=== PATIENT | female | born 1940 | race Caucasian/White ===

== ENCOUNTER 2018-11-23 20:19 | Inpatient (IN) | payer OTHER ==
[~2018-11-23] VITALS: Ht 160 cm; Wt 143.4 kg
[2018-11-23] MEDS ORDERED: LORazepam 2MG/ML-1ML VIAL IV ONE ×2 (21:45)
[2018-11-23 21:53] LABS: Basophils # (auto) 0.1 uL; Basophils % (auto) 0.9 % (0.0-2.0); Eosinophils # (auto) 0 uL; Hematocrit 44.7 % (36.0-46.0); Lymphocytes # (auto) 1.7 uL; Lymphocytes % (auto) 21.7 % (10.0-50.0); Mean Corpuscular Hemoglobin 29.2 pg (28.0-32.0); Mean Corpuscular Hgb Conc. 33.6 g/dL (32.0-36.0); Mean Corpuscular Volume 86.9 fL (80.0-100.0); Monocytes % (auto) 12.4 % (0.0-12.0); Nucleated Red Blood Cells % 0.2 %; Platelet Count (auto) 162 10^3/uL (140-450); Red Blood Cells 5.14 10^6/uL (4.0-5.20); Red Cell Distribution Width 14.1 % (11.8-14.3); White Blood Cell 7.7 10^3/uL (4.4-10.8)
[2018-11-23] MEDS ORDERED: IPRATROPIUM BROM 0.5 MG/2.5ML INH SOL NEB ONE (22:00)
[2018-11-23] MEDS ORDERED: ALBUTEROL SULF 2.5 MG/0.5ML(0.5%) NEB SOLN NEB ONE (22:00)
[2018-11-23 22:09] LABS: Alanine Aminotransferase 51 U/L (13-56); Amylase 37 U/L (25-115); Anion Gap 11 (5-15); Aspartate Aminotransferase 33 U/L (15-37); BUN/Creatinine Ratio 17.4; Blood Urea Nitrogen 21 mg/dL (7-18); Calcium 8.9 mg/dL (8.5-10.1); Carbon Dioxide 32 mmol/L (21-32); Chloride 97 mmol/L (98-107); GFR African American 55 mL/min; GFR Non-African American 46 mL/min; Glucose 139 mg/dL (74-106); Lipase 103 U/L (73-393); Magnesium 2.6 mg/dL (1.6-2.6); Sodium 140 mmol/L (136-145)
[2018-11-23 22:15] LABS: Alkaline Phosphatase 82 U/L (45-117); Bilirubin, Total 0.9 mg/dL (0.2-1.0); Total Protein 7.4 g/dL (6.4-8.2)
[2018-11-23 22:23] LABS: Potassium 2.5 mmol/L (3.5-5.1)
[2018-11-23] MEDS ORDERED: POTASSIUM CHL 20MEQ/100ML 100 ML IV ONE (23:30)
[2018-11-23] MEDS ORDERED: methylPREDNISolone SOD SUCC 125 MG/2 ML VL IV ONE (23:30)
[2018-11-24] MEDS ORDERED: ONDANSETRON HCL 4 MG/2 ML VIAL IV ONE ×2 (00:30→06:00)
[2018-11-24] MEDS ORDERED: FUROSEMIDE 20 MG/2 ML VIAL IV ONE (00:30)
[2018-11-24] MEDS ORDERED: POTASSIUM CHL 20 Meq TABLET PO ONE (01:15)
[2018-11-24 02:57] LABS: Urine Bacteria FEW /hpf (None Seen); Urine Blood Negative /uL (Negative); Urine Hyaline Cast MOD /lpf (0 - 2); Urine Mucus FEW (None Seen); Urine WBC 6 /hpf (0 - 5)
[2018-11-24] MEDS ORDERED: FUROSEMIDE 40 MG/4 ML VIAL IV ONE (04:30)
[2018-11-24] MEDS ORDERED: MORPHINE SULFATE 4 MG/ML SYR/VIAL IV ONE (06:00)
[2018-11-24 06:07] LABS: Alanine Aminotransferase 48 U/L (13-56); Albumin 3.7 g/dL (3.4-5.0); Aspartate Aminotransferase 31 U/L (15-37); Blood Urea Nitrogen 23 mg/dL (7-18); Calcium 8.5 mg/dL (8.5-10.1); Carbon Dioxide 32 mmol/L (21-32); Glucose 181 mg/dL (74-106)
[2018-11-24 06:38] LABS: Anion Gap 9 (5-15); Chloride 100 mmol/L (98-107); Sodium 141 mmol/L (136-145)
[2018-11-24 06:53] LABS: Alkaline Phosphatase 85 U/L (45-117); BUN/Creatinine Ratio 18.3; Bilirubin, Total 0.9 mg/dL (0.2-1.0); GFR African American 53 mL/min; GFR Non-African American 44 mL/min; Total Protein 7.6 g/dL (6.4-8.2)
[2018-11-24] MEDS ORDERED: MORPHINE SULF INJ 2 MG/ML SYRINGE 1ML IV PRN (08:15)
[2018-11-24] MEDS ORDERED: NITROGLYCERIN 0.4 MG SL TAB SL PRN (08:15)
[2018-11-24] MEDS ORDERED: ACETAMINOPHEN 325 MG TAB PO PRN (08:15)
[2018-11-24] MEDS ORDERED: POTASSIUM EFFERVESENT TAB 25 MEQ ONE (08:25)
[2018-11-24] MEDS ORDERED: POTASSIUM EFFERVESENT TAB 25 MEQ PO ONE (08:30)
[2018-11-24] MEDS: NIFEdipine 10 MG CAP PO SCH ×2 (08:32→22:13)
[2018-11-24] MEDS: HYDROcodone-ACET 5/325MG TAB PO PRN ×4 (08:59→23:17)
[2018-11-24] MEDS ORDERED: FUROSEMIDE 40 MG/4 ML VIAL IV SCH (10:00)
[2018-11-24] MEDS: POTASSIUM CHL 20 Meq TABLET PO SCH ×2 (10:00→22:11)
[2018-11-24] MEDS: hydrALAZINE HCL 20 MG/ML VL IV PRN ×2 (10:29→15:51)
[2018-11-24] MEDS: ONDANSETRON HCL 4 MG/2 ML VIAL IV PRN ×2 (13:08→21:08)
[2018-11-24] MEDS ORDERED: ALPRAZolam 0.5 MG TAB PO PRN (13:30)
[2018-11-24 15:44] VITALS: BP 170/69
--- NOTE | 2018-11-24 16:12 | NUR ---
Telemetry admit from ER MALLYMISBAH admitted to Telemetry unit after SBAR received. Patient oriented to RICH ADHIKARI RN primary RN, unit, room, bed, and unit policies regarding patient care and visiting hours. Patient now on continuous telemetry monitoring Patient placed on bedside oxygen, weighed by bedscale and encouraged to call if they need something. All questions and concerns addressed, patient verbalized understanding. Note:
[2018-11-24 16:43] VITALS: BP 147/102
[2018-11-24 16:55] VITALS: BP 147/102
--- NOTE | 2018-11-24 17:21 | NUR ---
PT HAS HOSPICE FOLDER AT BEDSIDE WITH DAVID STATING SHE IS DNR
[2018-11-24] MEDS: LORazepam 2MG/ML-1ML VIAL IV PRN (18:32)
--- NOTE | 2018-11-24 18:55 | NUR ---
MD Luevano called new orders noted for pt having anxiety attack rocking in bed
[2018-11-24 22:00] VITALS: BP 131/75
[2018-11-24] MEDS: IPRATROPIUM BROM 0.5 MG/2.5ML INH SOL NEB PRN (23:00)
[2018-11-24] MEDS: ALBUTEROL SULF 2.5 MG/0.5ML(0.5%) NEB SOLN NEB PRN (23:00)
[2018-11-25] MEDS: LORazepam 2MG/ML-1ML VIAL IV PRN ×4 (00:27→20:10)
--- NOTE | 2018-11-25 00:35 | NUR ---
REPORT GIVEN BY JOSHUA CALLEJAS, PT. RESTING WITH EYES CLOSED, NO ANXIETY AT THIS TIME, TO CONTINUE PT. CARE.
--- NOTE | 2018-11-25 00:49 | NUR ---
ENDORSED PATIENT CARE TO NURSE EMILY LEWIS
[2018-11-25] MEDS: ONDANSETRON HCL 4 MG/2 ML VIAL IV PRN ×4 (03:43→22:37)
[2018-11-25 04:33] VITALS: BP 166/107
[2018-11-25] MEDS: HYDROcodone-ACET 5/325MG TAB PO PRN ×2 (04:58→22:37)
[2018-11-25 07:08] LABS: Basophils # (auto) 0.1 uL; Basophils % (auto) 0.9 % (0.0-2.0); Eosinophils # (auto) 0 uL; Hematocrit 43.3 % (36.0-46.0); Hemoglobin 14.3 g/dL (12.2-16.2); Lymphocytes # (auto) 2.3 uL; Lymphocytes % (auto) 22.4 % (10.0-50.0); Mean Corpuscular Hemoglobin 28.9 pg (28.0-32.0); Mean Corpuscular Hgb Conc. 32.9 g/dL (32.0-36.0); Mean Corpuscular Volume 87.9 fL (80.0-100.0); Monocytes # (auto) 1.1 uL; Monocytes % (auto) 10.6 % (0.0-12.0); Neutrophils # (auto) 6.8 uL; Neutrophils % (auto) 66.1 % (37.0-80.0); Nucleated Red Blood Cells % 0.1 %; Platelet Count (auto) 153 10^3/uL (140-450); Red Blood Cells 4.93 10^6/uL (4.0-5.20); Red Cell Distribution Width 14.6 % (11.8-14.3); White Blood Cell 10.3 10^3/uL (4.4-10.8)
--- NOTE | 2018-11-25 07:30 | NUR ---
Opening Shift Note Assumed care of patient, awake and alert. No S/S of distress/SOB or pain. Instructed on POC and to call for assist PRN, will continue to monitor for changes Q1hr and PRN.
[2018-11-25 07:39] LABS: Albumin 3.6 g/dL (3.4-5.0); BUN/Creatinine Ratio 20.9; Calcium 8.6 mg/dL (8.5-10.1)
[2018-11-25 07:45] LABS: Bilirubin, Total 0.7 mg/dL (0.2-1.0); Total Protein 6.7 g/dL (6.4-8.2)
[2018-11-25 07:47] LABS: Potassium 2.7 mmol/L (3.5-5.1)
--- NOTE | 2018-11-25 07:56 | NUR ---
Received call from Lab - serum potassium 2.7. Page placed to Dr. Luevano.
--- NOTE | 2018-11-25 08:22 | NUR ---
Return call from Dr. Luevano. He was informed of potassium level. New orders received.
[2018-11-25] MEDS ORDERED: POTASSIUM CHL 20 Meq TABLET PO ONE (08:30)
[2018-11-25] MEDS ORDERED: POTASSIUM CHLORIDE 40 MEQ, LIDOCAINE 1% (LOCAL ANESTH.) 4 ML in SODIUM CHL 0.9% 100 ML IV ONE (08:30)
[2018-11-25 09:00] VITALS: BP 143/77
[2018-11-25] MEDS: NIFEdipine 10 MG CAP PO SCH ×2 (10:43→22:36)
[2018-11-25] MEDS: POTASSIUM CHL 20 Meq TABLET PO SCH ×2 (10:44→22:36)
[2018-11-25] MEDS: methylPREDNISolone SOD SUCC 40 MG/ML VL IV SCH ×3 (11:47→22:36)
--- NOTE | 2018-11-25 11:57 | NUR ---
Estimated needs based on AJBW 78 kg-weight maintenance, geriatric needs, hx COPD 7396-0198 kcal (25-27 kcal/kg) 78-93 g protein (1.0-1.2 g/kg) Addendum: 11/25/18 at [address] Amended: Links added.
[2018-11-25 13:00] VITALS: BP 130/62
--- NOTE | 2018-11-25 13:20 | NUR ---
Patient agitated, thrashing around on the bed. Patient requesting something to relax her. Ativan IV given. is at bedside. Will continue to monitor.
--- NOTE | 2018-11-25 13:45 | NUR ---
PATIENT'S FAMILY REQUESTED THAT P.T. BE DONE ANOTHER TIME.
[2018-11-25 17:10] VITALS: BP 144/76
--- NOTE | 2018-11-25 17:24 | NUR ---
Patient anxious, states "I can't breath". O2 in place. O2 sat 94%. Patient calmer. at bedside. Will continue to monitor.
[2018-11-25] MEDS: IPRATROPIUM BROM 0.5 MG/2.5ML INH SOL NEB PRN (17:38)
[2018-11-25] MEDS: ALBUTEROL SULF 2.5 MG/0.5ML(0.5%) NEB SOLN NEB PRN (17:39)
--- NOTE | 2018-11-25 19:30 | NUR ---
Opening Shift Note Assumed care of patient, alert and oriented x 4. Patient on bedrest, hernandez catheter patent and draining to gravity. On 3L oxygen via nasal cannula. Family at bedside. Patient appears anxious and C/O nausea. Bed in lowest locked position, side rails up x 2, call light within reach. Instructed on POC and to call for assist PRN, will continue to monitor for changes Q1hr and PRN.
--- NOTE | 2018-11-25 20:15 | NUR ---
Patient had small amount of diarrhea on bedpan, cleaned patient, applied Z-guard and changed bed linens. Will continue to monitor.
[2018-11-25 21:39] VITALS: BP 141/75
[2018-11-26] MEDS: LORazepam 2MG/ML-1ML VIAL IV PRN ×2 (02:22→10:48)
[2018-11-26] MEDS: ONDANSETRON HCL 4 MG/2 ML VIAL IV PRN ×2 (03:44→10:49)
[2018-11-26 04:56] VITALS: BP 141/77
[2018-11-26] MEDS: methylPREDNISolone SOD SUCC 40 MG/ML VL IV SCH ×3 (05:50→21:41)
[2018-11-26 06:26] LABS: Basophils # (auto) 0 uL; Basophils % (auto) 0.2 % (0.0-2.0); Eosinophils # (auto) 0 uL; Hematocrit 43.1 % (36.0-46.0); Hemoglobin 14.3 g/dL (12.2-16.2); Lymphocytes # (auto) 1.1 uL; Lymphocytes % (auto) 10.5 % (10.0-50.0); Mean Corpuscular Hemoglobin 29.4 pg (28.0-32.0); Mean Corpuscular Hgb Conc. 33.3 g/dL (32.0-36.0); Mean Corpuscular Volume 88.2 fL (80.0-100.0); Monocytes # (auto) 0.4 uL; Monocytes % (auto) 3.7 % (0.0-12.0); Neutrophils # (auto) 9.2 uL; Neutrophils % (auto) 85.6 % (37.0-80.0); Platelet Count (auto) 158 10^3/uL (140-450); Red Blood Cells 4.89 10^6/uL (4.0-5.20); Red Cell Distribution Width 14.4 % (11.8-14.3); White Blood Cell 10.8 10^3/uL (4.4-10.8)
[2018-11-26 06:39] LABS: Calcium 8.5 mg/dL (8.5-10.1); Magnesium 2.5 mg/dL (1.6-2.6); Potassium 3.2 mmol/L (3.5-5.1)
[2018-11-26 06:41] LABS: BUN/Creatinine Ratio 21.2
[2018-11-26 09:08] VITALS: BP 155/76
[2018-11-26] MEDS: NIFEdipine 10 MG CAP PO SCH ×2 (10:00→21:42)
[2018-11-26] MEDS: POTASSIUM CHL 20 Meq TABLET PO SCH ×2 (10:49→21:42)
[2018-11-26] MEDS: HYDROcodone-ACET 5/325MG TAB PO PRN ×2 (10:51→22:17)
[2018-11-26] MEDS ORDERED: POTASSIUM CHL 20 Meq TABLET PO ONE (12:15)
[2018-11-26 13:22] VITALS: BP 131/58
[2018-11-26] MEDS: PANTOPRAZOLE 40 MG TAB PO SCH ×2 (14:30→21:43)
[2018-11-26 17:17] VITALS: BP 142/73
--- NOTE | 2018-11-26 18:10 | NUR ---
assessment Patient is a 78 year old female who is alert and oriented. Prior to admission patient lived home with family and functioned with assistance of Hospice. Per patients daughter Aalna who has POA patient will return home with [facility] hospice [phone] who she has been on for some time. Patient has all DME and patient will be transported home by [facility] transportation. MD order to dc with hospice has been sent to [facility]. Xenia from [facility] will contact family. Patients kee Warner is not aware of discharge. I informed Alana to speak to MD and bedside RN. Alana verbalized understand. Addendum: 11/26/18 at 1818 by Tamie BROWN Amended: Links added.
--- NOTE | 2018-11-26 19:15 | NUR ---
ASSUMED CARE, PT. AWAKE, RELATIVE AT BEDSIDE, REPOSITIONED PT. NO C/O PAIN, NO SOB.
[2018-11-26] MEDS: HYOSCYAMINE SULF 0.125 MG ODT TAB PO PRN (19:49)
--- NOTE | 2018-11-26 20:55 | NUR ---
PT. C/O PAIN AND DISCOMFORT ON HER FLORES CATHETER, PT.AND DAUGHTER REQUESTED TO REMOVED HER CATHETER, RISK AND BENEFITS EXPLAINED, STILL WANTS TO REMOVE CATHETER, FC REMOVED WITH 300ML URINE OUTPUT, TO KEEP MONITOR.
[2018-11-26 22:00] VITALS: BP 114/65
--- NOTE | 2018-11-26 22:24 | NUR ---
PT. URINATED WITH MODERATE AMT. OF YELLOW URINE OUTPUT.
--- NOTE | 2018-11-26 22:45 | NUR ---
Respiratory note: ASSESSED PT FOR PRN MED NEB AT THIS TIME, PT DENIES SOB AT THIS TIME, NO RESP DISTRESS NOTED, NO TX INDICATED. PULSE OX 97% ON 2LNC, HR 82, RR 18, BILATERAL BS RHONCHI
[2018-11-27] MEDS: ONDANSETRON HCL 4 MG/2 ML VIAL IV PRN ×2 (01:01→08:24)
[2018-11-27] MEDS: LORazepam 2MG/ML-1ML VIAL IV PRN ×2 (01:19→10:30)
[2018-11-27 04:44] VITALS: BP 154/65
[2018-11-27] MEDS: methylPREDNISolone SOD SUCC 40 MG/ML VL IV SCH ×2 (05:55→15:12)
[2018-11-27] MEDS: HYDROcodone-ACET 5/325MG TAB PO PRN ×3 (06:02→17:07)
[2018-11-27 06:53] LABS: Basophils # (auto) 0 uL; Basophils % (auto) 0.1 % (0.0-2.0); Eosinophils # (auto) 0 uL; Hematocrit 40.3 % (36.0-46.0); Hemoglobin 13.4 g/dL (12.2-16.2); Lymphocytes # (auto) 1.2 uL; Lymphocytes % (auto) 11.4 % (10.0-50.0); Mean Corpuscular Hemoglobin 29.1 pg (28.0-32.0); Mean Corpuscular Hgb Conc. 33.3 g/dL (32.0-36.0); Mean Corpuscular Volume 87.5 fL (80.0-100.0); Monocytes # (auto) 0.5 uL; Monocytes % (auto) 4.4 % (0.0-12.0); Neutrophils % (auto) 84.1 % (37.0-80.0); Platelet Count (auto) 144 10^3/uL (140-450); Red Cell Distribution Width 14.2 % (11.8-14.3); White Blood Cell 10.7 10^3/uL (4.4-10.8)
[2018-11-27 07:02] LABS: Calcium 8.4 mg/dL (8.5-10.1); Magnesium 2.6 mg/dL (1.6-2.6); Potassium 3.5 mmol/L (3.5-5.1)
[2018-11-27 07:09] LABS: BUN/Creatinine Ratio 22.4
--- NOTE | 2018-11-27 07:50 | NUR ---
Opening Shift Note Assumed care of patient, alert and oriented x 4. Patient on bedrest, On 3L oxygen via nasal cannula, bed at lowest locked position, call light within reach. On 2L oxygen via nasal cannula2 Patient appears anxious and C/O nausea and pain. Will medicate per MD orders. Instructed on POC and to call for assist PRN, will continue to monitor for changes Q1hr and PRN.
[2018-11-27 08:00] VITALS: BP 123/63
[2018-11-27] MEDS: PANTOPRAZOLE 40 MG TAB PO SCH (08:24)
[2018-11-27] MEDS: POTASSIUM CHL 20 Meq TABLET PO SCH (08:24)
[2018-11-27] MEDS: ALBUTEROL SULF 2.5 MG/0.5ML(0.5%) NEB SOLN NEB PRN (08:34)
[2018-11-27] MEDS: IPRATROPIUM BROM 0.5 MG/2.5ML INH SOL NEB PRN (08:34)
--- NOTE | 2018-11-27 08:41 | NUR ---
PATIENT WILL BE ADMITTED TO HOSPICE UPON DISCHARGE. HOLD AGGRESSIVE P.T.
[2018-11-27] MEDS ORDERED: VANCOMYCIN HCL 125MG/5ML ORAL SOL PO ONE (09:30)
[2018-11-27 09:31] VITALS: BP 123/63
[2018-11-27] MEDS: NIFEdipine 10 MG CAP PO SCH (10:29)
[2018-11-27] MEDS ORDERED: CHOLESTYRAMINE 4 GM POWDER PO ONE (12:00)
[2018-11-27 13:24] VITALS: BP 121/57
--- NOTE | 2018-11-27 14:27 | NUR ---
Nutrition Follow-up Notes Wt. 143.3 kg Pt. endorses much improved appetite and tolerance to current diet order (Cardiac) with no GI distress. Documented PO intake 75-100% x 3 days. No major changes to assessment since previous visit. Est. Needs (Based on previous assessment): Calories/Kcals/Kg 25-27 AJBW 78.7 kg Kcals Calculated [id number] Protein: Adj wt of IBW Proteing/K.0-1.2 Protein Calculated 78-93 Labs: BUN 26H, Cr 1.16H, BG 129H, Ca 8.4L Skin: Rajan 18, mod risk GI: BM x 3 loose PES: Morbid obesity r/t sedentary lifestyle 2/2 acute and chronic medical condition aeb pt. unable to ambulate without assistance and measured BMI 61.8 kg/m2. (ongoing) Inadequate PO intake r/t acute illness and GI distress aeb reports of pt. N/V/D x 4 days prior to admission, inability to tolerate baseline diet at home, and documented PO meeting <75% needs. (ongoing-improved) Plan of care: monitor weight trends, PO intake/tolerance, labs, skin integrity, GI function. F/U MR 3-5 days. Recommendations: 1) Continue Cardiac/2 gm Na diet as ordered and as tolerated. Continue POC.
--- NOTE | 2018-11-27 14:40 | NUR ---
Patient had a small formed BM.
--- NOTE | 2018-11-27 15:00 | NUR ---
Spoke to Sarita from [facility], transportation will be here from [phone]. Patient and notified.
[2018-11-27] MEDS: HYOSCYAMINE SULF 0.125 MG ODT TAB PO PRN (15:13)
[2018-11-27 17:00] VITALS: BP 127/57
--- NOTE | 2018-11-27 17:50 | NUR ---
Discharge instructions given as ordered. Encourage to follow up with PMD as instructed. All questions and concerns addressed. Patient verbalized understanding. Medication reconciliation form completed and copy given to patient. IV removed with catheter intact, pressure dressing applied. Telemetry unit returned to ICU. Transport came to [facility] patient via stretcher with all personal belongings, accompanied by family member. No distress noted at time of departure.
[2018-11-27] MEDS ORDERED: VANCOMYCIN HCL 125MG/5ML ORAL SOL PO SCH (18:00)
== END 2018-11-27 18:08 | disposition hospice, home (50) | DRG 371 ==
LOC: EDBD 20:19 → ER 20:28 → TELE 20:29 → TELE-CENTR 11-24 16:14
PROVIDERS: ADMIT Internal Medicine; ATTEND Internal Medicine
DX: A04.72 Enterocolitis due to Clostridium difficile, not specified as recurrent (principal); I50.23 Acute on chronic systolic (congestive) heart failure; J44.1 Chronic obstructive pulmonary disease with (acute) exacerbation; I13.0 Hypertensive heart and chronic kidney disease with heart failure and stage 1 through stage 4 chronic kidney disease, or unspecified chronic kidney disease; J96.11 Chronic respiratory failure with hypoxia; Z68.43 Body mass index [BMI] 50.0-59.9, adult; N17.9 Acute kidney failure, unspecified; N18.9 Chronic kidney disease, unspecified; E87.6 Hypokalemia; E66.01 Morbid (severe) obesity due to excess calories; E78.5 Hyperlipidemia, unspecified; K44.9 Diaphragmatic hernia without obstruction or gangrene; F41.9 Anxiety disorder, unspecified; M43.16 Spondylolisthesis, lumbar region; K86.89 Other specified diseases of pancreas; K57.30 Diverticulosis of large intestine without perforation or abscess without bleeding; Z90.710 Acquired absence of both cervix and uterus; Z99.81 Dependence on supplemental oxygen; Z79.899 Other long term (current) drug therapy; N14.1 Nephropathy induced by other drugs, medicaments and biological substances; T50.1X5A Adverse effect of loop [high-ceiling] diuretics, initial encounter
CPT/HCPCS: 36415; 51702; 71045; 74176; 80048; 80053; 81001; 82150; 82270; 83605; 83690; 83735; 83880; 84484; 85025; 87493; 93005; 93306; 94003; 94640; 96365; 96375; 99291; G0378; J2001; J2405; J3480